=== PATIENT | male | born 1965 | race Caucasian/White ===

== ENCOUNTER 2019-06-11 11:13 | Day surgery (SDC) | payer OTHER ==
[2019-06-11] MEDS ORDERED: PROPOFOL 40 ML (12:22)
[2019-06-11] MEDS ORDERED: PROPOFOL 200 MG INJ (12:22)
[2019-06-11] MEDS ORDERED: LIDOCAINE 2% (SDV) 5 ML INJ (12:22)
[2019-06-11] MEDS ORDERED: FENTAnyl 50 MCG/ML VIAL IV (13:30)
== END 2019-06-11 16:08 | disposition home or self-care (01) ==
LOC: GIL 11:13
DX: Z12.11 Encounter for screening for malignant neoplasm of colon (principal); D12.2 Benign neoplasm of ascending colon; D12.0 Benign neoplasm of cecum; K64.8 Other hemorrhoids; I10 Essential (primary) hypertension
CPT/HCPCS: 45380; 88305